=== PATIENT | male | born 1990 ===

== ENCOUNTER 2022-05-03 20:03 | Emergency (ER) | payer BC, OTHER ==
[2022-05-03] MEDS ORDERED: Ketorolac 30 MG/ML SDV IM STA (22:22)
== END 2022-05-03 23:32 | disposition home or self-care (01) ==
LOC: MW.ED 20:03
DX: S86.011A Strain of right Achilles tendon, initial encounter (principal); W50.0XXA Accidental hit or strike by another person, initial encounter; Y93.61 Activity, american tackle football
CPT/HCPCS: 29515; 73610; 73630; 96372; 99283; J1885